=== PATIENT | female | born 1995 | race Caucasian/White ===

== ENCOUNTER 2017-07-13 00:25 | Emergency (ER) | payer SELFPAY ==
[~2017-07-13] VITALS: Ht 165.1 cm; Wt 86.0 kg
[~2017-07-13 00:25] MED LIST: CIPR500T4 PO
[2017-07-13 00:32] VITALS: Ht 165.1 cm; Wt 86.0 kg
== END 2017-07-13 01:00 | disposition left against medical advice (07) ==
LOC: FTE 00:25 → E/R 01:00
DX: Z53.21 Procedure and treatment not carried out due to patient leaving prior to being seen by health care provider (principal)